=== PATIENT | male | born 1980 | race Caucasian/White ===

== ENCOUNTER → 2020-04-24 | Outpatient (CLI) | payer OTHER, SELFPAY ==
[2020-01-19 13:33] VITALS: BMI 26.5
--- NOTE | 2020-04-24 15:02 | CT_ITS ---
STUDY: CT ABDOMEN AND PELVIS WITH CONTRAST REASON FOR EXAM: Male, 39 years old. LEFT SIDE ABDOMINAL PAIN RADIATION DOSAGE (If Supplied By Facility): CTDIvol = ( 13.89 ) mGy, DLP = ( 922.56 ) mGycm TECHNIQUE: Transaxial images were obtained from the dome of the diaphragm to the symphysis pubis with oral contrast. Oral and amp; IV Readi-CAT and amp; 100mL Isovue-300 was administered. Sagittal and coronal images were reconstructed. Individualized dose optimization techniques were used for this CT. COMPARISON: None. FINDINGS: The visualized lung bases are unremarkable. The visualized portions of the heart are within normal limits. There is decreased attenuation of the liver consistent with steatosis. There is a solitary gallstone. Normal spleen. Normal pancreas. Normal bilateral adrenal glands. Normal right kidney. Normal left kidney. Normal visualized stomach. Normal small intestine. Normal colon. The appendix is visualized and appears normal. Normal abdominal aorta. Normal inferior vena cava. Normal retroperitoneum. Normal urinary bladder. There are prostatic calcifications. There is a small umbilical hernia containing fat. Small left inguinal hernia containing fat. Normal osseous structures. CT/Abdomen/Pelvis WITH Contrast IMPRESSION: Fatty infiltration of the liver. Small umbilical and left inguinal hernia containing fat. Electronically Signed: Ghassan Carter, at 9:41 EDT , Service support ,
== END | disposition home or self-care (01) ==
LOC: CT 14:56
PROVIDERS: PCP Family Medicine; Referring Provider Surgery; Visit Provider Surgery
DX: R10.9 Unspecified abdominal pain (principal)
CPT/HCPCS: 74177; Q9967

== ENCOUNTER 2020-05-11 12:10 | Day surgery (SDC) | payer OTHER, SELFPAY ==
[2020-01-19 13:33] VITALS: BMI 26.5
[2020-05-11] VITALS (9 sets, daily range): BP systolic 105–133; BP diastolic 66–93; PULSE 66–89; RESP 16–18; TEMP 36.1–36.7; O2SAT 92–100; BMI 27.1
[2020-05-11] MEDS: Lactated Ringers 1,000 ML 100 ML IV ×2 (12:48→16:02)
--- NOTE | 2020-05-11 12:51 | PCM.HP.STD ---
Problem List (1) Left inguinal hernia Status: Acute (2) Umbilical hernia Status: Acute Qualifiers: Obstruction and gangrene presence: without obstruction or gangrene Qualified Code(s): K42.9 - Umbilical hernia without obstruction or gangrene History of Present Illness Date of Admission: 05/11/20 The patient is a 40 year old M with left groin pain. Patient does not describe any other issues at this time. Patient follows up for hernia repair Past Medical History Medical History: Medical History (Last Reviewed 01/19/20 @ 13:32 by Angela Freedman) No significant past medical history Allergies No Known Allergies Allergy (Verified 05/11/20 12:32) Home Medications: Ambulatory Orders Medication Instructions Recorded NK 10/05/19 Surgical History: Surgical History (Last Reviewed 01/19/20 @ 13:32 by Angela Freedman) History of wisdom tooth extraction K08.409 Smoking Status: Never smoker Tobacco Use: Non-smoker - *Family History Maternal Family History: Family History (Last Reviewed 01/19/20 @ 13:32 by Angela Freedman) Father No problems noted. History Items: No pertinent history Review of Systems Constitutional: Denies: Anorexia, Fever Eyes: Denies: Blurred vision HEENT: Denies: Difficulty Swallowing Respiratory: Denies: Cough, Shortness of Breath Gastrointestinal: Reports: - - Left groin pain. Denies: Abdominal Pain, Nausea, Vomiting Skin: Denies: Dryness Neurological: Denies: Balance problems Psychiatric: Denies: Anxiety Hematologic/ Lymphatic: Denies: Anemia VTE Information - Inpt Only VTE Present on Admission: No VTE Mechan Device Prophylaxis: SCD's - Physical Exam Vitals/I&O's: Vital Signs Temp Pulse Resp BP Pulse Ox 97.4 F L 89 16 116/91 H 100 05/11/20 12:33 05/11/20 12:33 05/11/20 12:33 05/11/20 12:33 05/11/20 12:33 Oxygen Delivery Method Room Air Weight: 194 lb 7.163 oz Body Mass Index (BMI) 27.1 General: Alert, Oriented x3 Neck: No JVD Lungs: Normal air movement Abdomen: Soft, Non Tender, Non-Distended Current Medications Cefazolin Sodium 2 gm/ Sodium (Chloride) 110 mls @ 150 mls/hr IV X1 ONE Stop: 05/11/20 13:06 Lactated Ringer's () 1,000 mls @ 100 mls/hr IV .Q10H LEONARDO Last Admin: 05/11/20 12:48 Dose: 100 mls/hr Documented by: Assessment/Plan All Active Problems (Last Reviewed 01/19/20 @ 13:32 by Angela Freedman) Left inguinal hernia (Acute) Umbilical hernia (Acute) 40-year-old male with left inguinal hernia and umbilical hernia 1. Patient has CT scan to confirm his left inguinal hernia which he did and he also has an umbilical hernia. I discussed robotic assisted laparoscopic inguinal hernia repair with mesh with him in detail. I discussed the risks including not limited to bleeding, infection, injury to spermatic cord, injury to bowel or ureter, recurrence of hernia. Patient understands the risks and is when to proceed. I discussed contralateral hernia repair if there is a hernia present on the other opposite side. The patient would like this repaired if it is present. The patient also has an umbilical hernia and I did discuss umbilical hernia repair without mesh repair as it is very small. The patient would like the umbilical hernia repaired at the same time. Lexa Garcia MD Pager: [facility] [address] [place] [address], [address] [place] [address] Office:
[2020-05-11] MEDS: Cefazolin 2 GM in 0.9% Normal Saline 100 ML IV (13:13)
[2020-05-11] MEDS: Bupivacaine Mpf 0.5% 30 ML VIAL (14:30)
--- NOTE | 2020-05-11 15:06 | PCM.OPRPT ---
Problem List (1) Left inguinal hernia Status: Acute (2) Umbilical hernia Status: Acute Qualifiers: Obstruction and gangrene presence: without obstruction or gangrene Qualified Code(s): K42.9 - Umbilical hernia without obstruction or gangrene Report of Operation Date of Procedure: 05/11/20 Pre-Operative Diagnosis: 1. Left inguinal hernia. 2. Umbilical hernia Post-Operative Diagnosis: 1. Bilateral inguinal hernias. 2. Umbilical hernia Surgery/Procedure Performed:: 1. Robotic assisted laparoscopic bilateral inguinal hernia repair with mesh. 2. Umbilical hernia repair Description of Procedure: Patient was brought back the operating room and general anesthesia was these. The abdomen was prepped and draped in usual sterile fashion. An incision was made superior to the umbilicus in the midline and hemostat was used to grasp the fascia and elevated as a Veress needle was placed into the abdomen and drop test was performed. The abdomen was then insufflated to 15 mmHg. The Veress needle was removed and a camera port was placed into the abdomen. Next the camera was placed into the abdomen and it was inspected and there were no injuries. The inguinal regions were inspected and that he had bilateral inguinal hernias. Next an incision was made in the right lateral abdomen and the left lateral abdomen and in each incision an 8 mm robotic port was placed under direct visualization. Next the robot was docked after the patient was placed in steep Trendelenburg position. The left inguinal region was addressed first. There was an adhesion from a colonic appendage to the hernia sac. This was taken down with cautery and a Endoloop was placed around it and it was tied. Smooth cautery was used to create a flap in the left lower abdomen and the peritoneum was dissected down to the hernia sac. The hernia sac was reduced. Dissection was carried posteriorly until there was none from for the mesh. Next progrip mesh was placed into the left groin and unfolded across the hernia with good overlap. The peritoneum was then reapproximated using a running 3-0V lock suture. The peritoneum fully covered the mesh at the end of the case. Next the right groin was addressed. A flap was made in a similar fashion in the right lower quadrant. This was deepened down to the hernia sac and it was reduced as well. Once the dissection was carried posterior enough, a progrip mesh was then placed over the hernia. The progrip mesh was then unfolded and then the peritoneum was reapproximated using a running 3-0 V lock suture. This completely covered the mesh on the side. Next the robot was undocked and the air was desufflated from the abdomen. Next a curvilinear incision was marked at the umbilicus and injected with local anesthetic. The curvilinear incision was then made superior to the umbilicus and deepened to the umbilical hernia. The umbilical hernia was cleared of all adhesions and closed using interrupted 2-0 PDS sutures. It was less than 1 cm in diameter. Next the umbilical stalk was reapproximated to the fascia using a 4-0 Monocryl suture. The skin was then closed with a continuous 4-0 Monocryl suture. Next the laparoscopic ports were injected with local anesthetic and closed with interrupted 4-0 Monocryl sutures. All incisions had Steri-Strips and bandages placed over them. Patient was then awoken and taken to PACU in stable condition. Scrotum was checked at the end of the case and contain both testicles. Grafts/Implants Used: Progrip mesh bilaterally - Admit VTE Documentation VTE Mechan Device Prophylaxis: SCD's
--- NOTE | 2020-05-11 15:20 | DCINST_ITS ---
Discharge Diet: Light diet - advance as tolerated Discharge Activity: Return to Normal Activity, May Not Drive - for 2-3 days or while taking narcotic pain meds., May Shower - with the bandage in place 1-2 days after surgery. Lifting Restrictions: 20 pounds for 6 weeks. Additional Activity Instructions:: Climbing stairs is fine, walking is encouraged. Sitting in bed may be uncomfortable. Sitting up using your lateral muscles (sitting up sideways) is usually more comfortable. Do not drive, work heavy equipment of sign legal documents for 24 hours. If your hernia repair was an ingunial repair, you may have scrotal swelling, an ice pack and/or athletic support can provide more comfort. Pain medications may cause nausea, you should typically eat light foods as you take your pain medications. Pain medications may also cause constipation. If you have difficulty with this, discuss with your doctor. Call your doctor if your incision/area has: Continuous Slow Oozing, Sudden Increased Bleeding, Increased Pain/ Swelling, Increased Redness, Foul Smelling Discharge Call your doctor if you observe: Fever of 101 or Higher Suture Line Care: Avoid Pulling/Pushing, Avoid Pinching/Bending Change Dressing in (Days):: 3 - Leave steri-strips for 1 week. May protect with a guaze bandaid. Cleanse incision/area with: Keep Dressing Clean & Dry Allergies/Adverse Reactions: Allergies No Known Allergies Allergy (Verified 05/11/20 12:32) Medications to take at Discharge Oxycodone HCl/Acetaminophen [Percocet 5-325 mg Tablet] 1 - 2 tab PO Q6H PRN PRN 3 Days #15 tablet 05/11/20 The following prescriptions were given: Oxycodone HCl/Acetaminophen [Percocet 5-325 mg Tablet] 1 - 2 tab PO Q6H PRN PRN 3 Days #15 tablet PRN Reason: Pain Score 4-10/10 Transmission Status: Sent to [facility] Test Results: Test results from this visit will be discussed in further detail at your follow- up appointment, if applicable. Please Follow Up With: Lexa Garcia MD When: Please call to schedule 2 week follow up appointment. [phone]
[2020-05-11] MEDS: oxyCODONE 5 MG Tablet PO (17:28)
[2020-05-11] MEDS: Acetaminophen 325 MG Tablet PO (17:28)
== END 2020-05-11 18:25 | disposition home or self-care (01) ==
LOC: SDC 12:10 → AC 12:11
PROVIDERS: Obstetrics & Gynecology; PCP Family Medicine; Referring Provider Surgery; Visit Provider Surgery
PROC: (CPT 49585; principal; 2020-05-11 13:15)
DX: K40.20 Bilateral inguinal hernia, without obstruction or gangrene, not specified as recurrent (principal); K42.9 Umbilical hernia without obstruction or gangrene; Z20.828 Contact with and (suspected) exposure to other viral communicable diseases
CPT/HCPCS: 49585; 49650; 87635; C9803; J7120; J2405; U0003

== ENCOUNTER → 2020-09-20 15:59 | Outpatient (CLI) | payer OTHER, SELFPAY ==
[2020-05-11 12:33] VITALS: BMI 27.1
--- NOTE | 2020-09-20 16:10 | CT_ITS ---
STUDY: CT ABDOMEN AND PELVIS WITHOUT CONTRAST REASON FOR EXAM: Male, 40 years old. Abdominal pain RADIATION DOSAGE (If Supplied By Facility): CTDIvol = ( 10.43 ) mGy, DLP = ( 568.89 ) mGycm TECHNIQUE: Transaxial images were obtained from the dome of the diaphragm to the symphysis pubis without oral contrast, and without intravenous contrast. Sagittal and coronal images were reconstructed. Individualized dose optimization techniques were used for this CT. COMPARISON: April 24, 2020 FINDINGS: There is right lower lung granuloma. The visualized portions of the heart are within normal limits. There is decreased attenuation of the liver consistent with steatosis. There is a solitary gallstone. Normal spleen. Normal pancreas. Normal bilateral adrenal glands. Normal right kidney. Normal left kidney. Normal visualized stomach. Normal small intestine. Normal colon. The appendix is visualized and appears normal. Normal abdominal aorta. Normal inferior vena cava. Normal retroperitoneum. Normal urinary bladder. There are prostatic calcifications. There is no free fluid in the abdomen or pelvis. Normal abdominal wall. Normal osseous structures. CT/Abdomen/Pelvis without Cont IMPRESSION: Fatty infiltration of the liver. Gallstone. No biliary dilatation. Electronically Signed: Héctor Bernard MD at 16:25 EST , Service support ,
== END ==
PROVIDERS: PCP Family Medicine; Referring Provider Surgery; Visit Provider Surgery
DX: R10.9 Unspecified abdominal pain (principal)
CPT/HCPCS: 74176

== ENCOUNTER 2022-10-05 20:49 | Emergency (ER) | payer BC, SELFPAY ==
[2022-10-05 20:51] VITALS: BP 150/94; PULSE 94; RESP 16; TEMP 36.2; O2SAT 99; BMI 28.4
--- NOTE | 2022-10-05 21:17 | EKG12_ITS ---
Test Reason : CP Blood Pressure : / mmHG Vent. Rate : 089 BPM Atrial Rate : 089 BPM P-R Int : 146 ms QRS Dur : 082 ms QT Int : 336 ms P-R-T Axes : 033 -29 -07 degrees QTc Int : 408 ms Normal sinus rhythm Nonspecific ST and T wave abnormality Abnormal ECG Confirmed by CHRISTINE HODGES, MARK ([id number]), assignment desk editor DEBO MONCADA ([id number]) on 10/06/2022 1:57:37 PM Referred By: Confirmed By:MARK KING MD
--- NOTE | 2022-10-05 21:18 | ED.VIS.CHEST ---
HPI History of Present Illness Chief Complaint: Other, Pain/Inj Detail of Chief Complaint: chest pain Informant: patient Onset/Context/Timing Onset: Days (4) Activity at onset: sudden and onset Timing: Continuous Quality: Positive for Pain (discomfort) Location: Left Chest Current Severity: Mild Maximum Severity: Mild Worsened By: Nothing Relieved By: Nothing Narrative Narrative: Patient has chronic pain associated with some ribs on the left side, 4 days ago he had rib/intercostal injections in his left back. He states suddenly upon leaving [facility], he started having this discomfort in his left anterolateral chest, he states he constantly feels a gurgling sound coming from there. He is not dyspneic. He denies any other symptoms but has not done away. Weeks ago he had injections in the same rib area anterior laterally, but he only had back injections 4 days ago. No history of heart problems or valve issues or any open heart surgery. [facility] Medical History (Updated 10/05/22 @ 22:[address] Héctor Crisostomo MD) Costochondritis Left inguinal hernia Umbilical hernia Home Medications NK 10/05/22 [History Last Taken Unknown] Allergy/AdvReac Type Severity Reaction Status Date / Time No Known Allergies Allergy Verified 10/05/22 20:53 Family History Father No problems noted. Surgical History (Updated 05/11/20 @ 12:[address] Lexa Garcia MD) History of wisdom tooth extraction Social History Smoking Status: Never smoker ROS ROS ED Constitutional Constitutional ED: Denies chills or fever(s) Eyes Eyes: Denies change in vision or diplopia ENT ENT ED: Denies rhinorrhea or sore throat Cardiovascular Cardiovascular: Reports as per HPI and chest pain; Denies palpitations Respiratory/Chest Respiratory/Chest: Denies cough or dyspnea Gastrointestinal Gastrointestinal: Denies abdominal pain, diarrhea, nausea or vomiting Genitourinary Genitourinary ED: Denies dysuria or hematuria Musculoskeletal Musculoskeletal: Denies back pain or neck pain Integumentary Denies abscess or rash Neurologic Neurologic: Denies headache(s), paresthesias or weakness Psychiatric Psychiatric: Denies anxiety or suicidal thoughts EXAM Physical Exam Const Vital Signs: 10/05/22 20:51 Temperature 97.2 F L Temperature Source Temporal Pulse Rate 94 Respiratory Rate 16 Blood Pressure 150/94 H Blood Pressure Mean 112 Pulse Ox 99 Oxygen Delivery Method Room Air Positive well nourished and well developed General Appearance ED: well developed and NAD HEENT Reports moist mucous membranes normocephalic and atraumatic Eyes PERRL and EOMs intact bilaterally Neck full ROM and supple Chest Wall inspection of chest normal and palpation of chest normal Chest Narrative: No subcutaneous emphysema in the chest wall. Normal inspection. Mildly tender at one of the intercostal spaces anterolateral approximately #5 without crepitance. Resp normal respiratory effort and clear to auscultation bilaterally Resp Narrative: Equal breath sounds present bilaterally. No changes in abnormal heart sounds with inspiration or expiration. Cardio regular rate and regular rhythm Cardio Narrative: Audible click with suspected diastolic murmur. It went away for a brief period of time and then came back. Peripheral Pulses: pulses 2+ throughout GI non-tender and non-distended Auscultation: normoactive bowel sounds Palpation: soft Back/Spine no CVA tenderness General Back: other FROM Extremity normal to inspection General Extremety ED: Negative for edema, pulses abnormal or tenderness General Extremity: Negative for edema or pulses abnormal Neuro oriented x3, CN's II-XII intact bilaterally, no sensory deficits noted and gait normal Sensorium / Orientation: awake and alert Motor Exam: strength 5/5 throughout Skin no rashes or lesions noted and no wounds MDM MDM MDM Narrative Medical decision making narrative: EKG shows some nonspecific repolarization abnormalities without ST depressions or elevations, there is no electrical alternans. I did a bedside ultrasound of his heart, given the probes that we have available which does not include a thumbprint probe, the views were very limited, but I was able to determine that there is not a large pericardial effusion. 2 view chest x-ray interpreted by myself shows no pneumothorax or other acute abnormality. Radiology in agreement. Very unlikely that this patient had a needle that went further than the ribs into the heart without a pneumothorax. It is unknown how his procedure could be related to the current clinical exam abnormality. He is stable and not in acute failure or any other emergent condition right now. It does appear to be an audible valvular abnormality that I think would be reasonable to have an outpatient urgent echocardiogram which I discussed with him. I discussed that with Dr. Roque who was covering for his PCP Dr. Stevie holbrook, he was in agreement and asked that we do some blood work and maybe some blood cultures that way we rule out endocarditis, that was done, the blood work is normal, patient was reassured and advised to follow-up with his doctor tomorrow and Thursday. Lab Data Attestation: I reviewed the patient's lab results. Labs: Laboratory Results - last 24 hr 10/05/22 10/05/22 22:10 22:10 WBC 9.8 RBC 5.47 Hgb 16.4 Hct 47.3 MCV 86.5 MCH 30.0 MCHC 34.7 RDW Std Deviation 38.5 RDW Coeff of Moira 12.1 Plt Count 281 MPV 9.3 Immature Gran % (Auto) 0.600 Neut % (Auto) 64.7 Lymph % (Auto) 23.0 [place] % (Auto) 10.7 H Eos % (Auto) 0.3 Baso % (Auto) 0.7 Absolute Neuts (auto) 6.4 Absolute Lymphs (auto) 2.26 Nucleated RBC % 0 Sodium 140 Potassium 4.0 Chloride 106 Carbon Dioxide 27.0 Anion Gap 7 BUN 19 H Creatinine 0.90 Estim Creat Clear Calc 111.56 Est GFR (MDRD) Af Amer 117 Est GFR (MDRD) Non-Af 97 BUN/Creatinine Ratio 21.0 H Glucose 117 H Calcium 9.0 Troponin I High Sens 3 Radiography Chest X-Ray - ED: 2 View, Read by ED Physician, Normal, Heart, Lungs, Mediastinum, No Acute Disease and No Infiltrates Diagnostic Testing: Clinical Impression(s) from Imaging Studies Chest X-Ray 10/05/22 21:30 IMPRESSION: No radiographic evidence of acute cardiopulmonary disease. Electronically Signed: Bernice Childress MD at 21:51 EDT Reading Location ID and State: [id number] / Tel , Service support , Rhythm Strip Rhythm Strip: Sinus Rhythm Rate: 90 Ectopy: None EKG Initial EKG: Attestation: I personally reviewed and interpreted this EKG as follows: Interpretation: Sinus Rhythm, No Acute Injury Pattern and Non-Specific ST Changes (Anteroseptal and inferior with T wave inversions no ST segment deviations) Comments: No electrical alternans Prior: No Prior Discharge Plan Triage Chief Complaint: Other, Pain/Inj Other Complaint: Chest Pain ED Provider: Héctor Crisostomo Dx/Rx/DC Orders Clinical Impression: Intercostal pain, Cardiac murmur Instructions: Diagnosing Heart Valve Problems Prescriptions: No Action NK Primary Care Provider: Cuba Hubbard Referrals: Cuba Hubbard MD [Primary Care Provider] - As soon as possible (call tomorrow) Disposition Disposition: Home, Self Care
--- NOTE | 2022-10-05 21:30 | RAD_ITS ---
INDICATION: chest pain EXAMINATION/TECHNIQUE: X-RAY - XR Chest 2 Views COMPARISON: None. FINDINGS: LINES/DEVICES: None. LUNGS: No consolidation, edema or effusion. No pneumothorax. MEDIASTINUM AND CARDIOVASCULAR STRUCTURES: Cardiac silhouette not enlarged. Central airways and mediastinal contour are unremarkable. BONES AND SOFT TISSUES: Unremarkable. RAD/Chest PA and Lateral IMPRESSION: No radiographic evidence of acute cardiopulmonary disease. Electronically Signed: Bernice Childress MD at 21:51 EDT [place] Location ID and State: [id number] / Tel , Service support ,
[2022-10-05 22:21] LABS: Absolute Lymphocyte Count 2.26 X10^3/uL (0.83-4.51); Absolute Neutrophil Count 6.4 X10^3/uL (2.0-7.7); Basophil# 0.07 X10^3/uL; Basophil% 0.7 % (0-1); Eosinophil# 0.03 X10^3/uL; Eosinophils% 0.3 % (0-5); Hematocrit 47.3 % (40-54); Hemoglobin 16.4 g/dL (13.0-16.5); Lymphocyte # 2.26 X10^3/ul (0.83-4.51); Mean Corp Hgb Conc 34.7 g/dL (32-36); Mean Corpuscular Volume 86.5 fL (80-94); Mean Platelet Vol. 9.3 fl (6.2-12.0); Monocyte# 1.05 X10^3/uL; Monocyte% 10.7 % (0-10); NRBC Flagged by Analyzer 0 % (0-5); Neutrophil # 6.37 X10^3/uL (2.7-7.7); Neutrophil % 64.7 % (47-70); Platelet Count 281 K/mm3 (150-450); RBC Distribution Width CV 12.1 % (11.6-14.6); RBC Distribution Width SD 38.5 fl (35.1-43.9); Red Blood Count 5.47 M/mm3 (4.6-6.2); White Blood Count 9.8 K/mm3 (4.4-11.0)
[2022-10-05 22:41] LABS: Anion Gap 7 (5-15); BUN 19 mg/dL (7-18); Chloride 106 mmol/L (98-107); EST Glomerular Filtration Rate 97 mL/min (>60); Est Glom Filt Rate - Afr Amer 117 mL/min (>60); Estimated Creatinine Clearance 111.56 ml/min; Glucose 117 mg/dL (74-106); Sodium Level 140 mmol/L (136-145); Troponin-I HS 3 pg/mL (3.0-78.0)
[2022-10-05 23:00] VITALS: BP 129/92; RESP 14
== END 2022-10-05 23:02 | disposition home or self-care (01) ==
PROVIDERS: Emergency Provider Emergency Medicine; PCP Family Medicine; Visit Provider Emergency Medicine
DX: R07.82 Intercostal pain (principal); R01.1 Cardiac murmur, unspecified; G89.29 Other chronic pain
CPT/HCPCS: 71046; 80048; 84484; 85025; 87040; 93005; 99284; A4216

== ENCOUNTER → 2022-10-17 | Outpatient (CLI) | payer BC, SELFPAY ==
--- NOTE | 2022-10-17 13:38 | MRI_ITS ---
STUDY: MRI THORACIC SPINE WITHOUT CONTRAST REASON FOR EXAM: Male, 42 years old. Thoracic radiculopathy. TECHNIQUE: Standardized fat and water weighted pulse sequences were obtained in the sagittal and axial planes. COMPARISON: None. FINDINGS: Normal kyphosis of the thoracic spine. There is no substantial scoliosis. T1-2, T2-3, T3-4, T4-5, T5-6, T6-7, T7-8, T8-9, T9-10, T10-11, T11-12: Normal endplates. Normal disc hydration, heights and morphology of the corresponding intervertebral discs. Normal central canal and intervertebral neural foramina at the corresponding levels. Normal visualized thoracic cord. Normal conus medullaris that terminates at the T12-L1 disc space level. The soft tissue structures are unremarkable. MRI/Spine Thoracic (Routine) IMPRESSION: Normal unenhanced MRI examination of the thoracic spine. Electronically Signed: Yann Acharya MD at 15:37 EDT ,
== END | disposition home or self-care (01) ==
PROVIDERS: PCP Family Medicine; Referring Provider Anesthesiology Pain Medicine; Visit Provider Anesthesiology Pain Medicine
DX: M54.14 Radiculopathy, thoracic region (principal)
CPT/HCPCS: 72146

== ENCOUNTER → 2022-10-24 | Outpatient (CLI) | payer BC, SELFPAY ==
--- NOTE | 2022-10-24 14:50 | ECHOD_ITS ---
Reason For Study: abn heart sounds Procedure This was a 2D Doppler, Color Flow transthoracic echocardiogram. Exam performed in department. Left Ventricle Normal LV size. The estimated ejection fraction is 55 %. No evidence for diastolic dysfunction. No regional wall motion abnormalities noted. Right Ventricle Normal RV size. Normal systolic function. Atria Normal left atrium. Normal right atrium. No doppler evidence for ASD. Mitral Valve There is no mitral valve stenosis. No mitral valve insufficiency. Tricuspid Valve There is no tricuspid stenosis. Unable to estimate RV systolic pressure due to inadequate jet, pulmonary artery pressure probably normal. Aortic Valve Trisinus/trileaflet aortic valve. There is no aortic stenosis. No aortic valve insufficiency. Pulmonic Valve There is no pulmonic valvular stenosis. No pulmonic valve insufficiency. Great Vessels Normal aortic root. Pericardium/Pleural No pericardial effusion. MMode/2D Measurements & Calculations LVIDd: 4.5 cm IVSd: 1.2 cm LVOT diam: 2.1 cm LVIDs: 3.5 cm LVPWd: 1.4 cm LVOT area: 3.6 cm2 FS: 22.7 % Ao root diam: 3.6 cm LAV(MOD-bp): 34.9 ml LVAd ap4: 22.5 cm2 LAV(MOD-bp) Indexed: 16.9 ml/m2 LVLd ap4: 6.7 cm LAV(MOD-sp2): 31.5 ml EDV(MOD-sp4): 61.7 ml LAV(MOD-sp4): 38.6 ml EDV(sp4-el): 63.7 ml LVAs ap4: 12.8 cm2 LVLs ap4: 6.5 cm ESV(MOD-sp4): 22.7 ml ESV(sp4-el): 21.2 ml EF(MOD-sp4): 63.3 % EF(sp4-el): 66.7 % SV(MOD-sp4): 39.0 ml SV(sp4-el): 42.5 ml LA A4 area: 15.3 cm2 RA A4 area: 9.2 cm2 Time Measurements MV dec time: 0.22 sec Doppler Measurements & Calculations MV E max vahid: 48.4 cm/sec Lat Peak E' Vahid: 8.5 cm/sec Med Peak E' Vahid: 6.0 cm/sec MV A max vahid: 43.7 cm/sec E/E' lat: 5.7 E/E' med: 8.0 MV E/A: 1.1 MV V2 max: 74.2 cm/sec Ao V2 max: 79.4 cm/sec MV max P.2 mmHg MV dec slope: 231.4 cm/sec2 Ao max P.5 mmHg MV V2 mean: 54.0 cm/sec Ao V2 mean: 58.4 cm/sec MV mean P.2 mmHg Ao mean P.5 mmHg MV V2 VTI: 25.2 cm Ao V2 VTI: 16.2 cm AV (velocity ratio): 0.89 MVA(VTI): 2.1 cm2 NEREIDA(I,D): 3.2 cm2 NEREIDA(V,D): 3.1 cm2 LV V1 max: 67.2 cm/sec SV(LVOT): 52.0 ml PA V2 max: 99.7 cm/sec LV V1 max P.8 mmHg PA V2 mean: 65.8 cm/sec LV V1 mean P.0 mmHg LV V1 mean: 46.7 cm/sec LV V1 VTI: 14.4 cm ECHO/Echo Complete Interpretation Summary The estimated ejection fraction is 55 %. No evidence for diastolic dysfunction. Ordering Physician: Belinda Pizarro Referring Physician: Belinda Pizarro Performed By: Martina Sepulveda RCS
== END | disposition home or self-care (01) ==
LOC: CVS 14:05
PROVIDERS: PCP Family Medicine; Referring Provider Nurse Practitioner Family; Visit Provider Nurse Practitioner Family
DX: R01.2 Other cardiac sounds (principal)
CPT/HCPCS: 93306

== ENCOUNTER → 2023-06-23 | Outpatient (CLI) | payer BC, SELFPAY ==
[2023-06-23 17:39] LABS: Absolute Lymphocyte Count 2.38 X10^3/uL (0.83-4.51); Absolute Neutrophil Count 3.8 X10^3/uL (2.0-7.7); Basophil# 0.08 X10^3/uL; Basophil% 1.1 % (0-1); Eosinophils% 1.4 % (0-5); Hematocrit 48.2 % (40-54); Hemoglobin 16.5 g/dL (13.0-16.5); Lymphocyte # 2.38 X10^3/ul (0.83-4.51); Lymphocyte % 33.5 % (19-41); Mean Corp Hgb Conc 34.2 g/dL (32-36); Mean Corpuscular Volume 87.6 fL (80-94); Mean Platelet Vol. 9.6 fl (6.2-12.0); Monocyte# 0.73 X10^3/uL; Monocyte% 10.3 % (0-10); NRBC Flagged by Analyzer 0 % (0-5); Neutrophil % 53.4 % (47-70); Platelet Count 270 K/mm3 (150-450); RBC Distribution Width CV 12.4 % (11.6-14.6); RBC Distribution Width SD 39.7 fl (35.1-43.9); White Blood Count 7.1 K/mm3 (4.4-11.0)
[2023-06-23 17:57] LABS: Erythrocyte Sedimentation Rate < 1 mm/hr (0-20)
[2023-06-23 18:04] LABS: Vitamin B12 430 pg/mL (211-911)
[2023-06-23 18:48] LABS: ALB/GLOB Ratio 1.3 RATIO (0.9-2.4); AST(SGOT) 28 U/L (15-37); Alanine Aminotransfer ALT/SGPT 57 U/L (16-61); Alkaline Phosphatase 77 U/L (45-117); Anion Gap 7 (5-15); BUN 12 mg/dL (7-18); CRP < 2.90 mg/L (0.0-3.0); Calcium,Total 8.7 mg/dL (8.5-10.1); Chloride 106 mmol/L (98-107); Creatinine, Serum 0.86 mg/dL (0.70-1.30); EST Glomerular Filtration Rate 102 mL/min (>60); Est Glom Filt Rate - Afr Amer 124 mL/min (>60); Ferritin 501 ng/mL (26-388); Globulin 3.1 g/dL (2.2-4.2); Glucose 90 mg/dL (74-106); Iron 82 ug/dL (65-175); Magnesium 1.9 mg/dL (1.6-2.6); Potassium 3.7 mmol/L (3.5-5.1); Protein, Total 7.1 g/dL (6.4-8.2); Rheumatoid Factor < 10.0 IU/mL (<15); Sodium Level 140 mmol/L (136-145); Thyroid Stim Hormone (TSH) 2.08 uIU/mL (0.358-3.74)
[2023-06-25 14:09] LABS: ANTINUCLEAR ANTIBODIES DIRECT Negative (Negative)
== END | disposition home or self-care (01) ==
LOC: MTLAB 14:55
PROVIDERS: PCP Family Medicine; Referring Provider Family Medicine; Visit Provider Family Medicine
DX: R20.2 Paresthesia of skin (principal)
CPT/HCPCS: 36415; 80053; 82306; 82607; 82728; 83540; 83735; 84403; 84443; 84466; 85025; 85652; 86038; 86140; 86431

== ENCOUNTER → 2023-08-14 | Outpatient (CLI) | payer BC, SELFPAY ==
--- OUTSIDE RECORDS SUMMARY | 2023-08-14 15:25 | XMS RPT_ITS | CCD ---
Author Name Unknown Address [address] [place] [address] Organization [facility] Care Team Providers Care Riveter Portable Machine Name Role Phone NYADANIEL Unavailable Unavailable JOSE L SAINZ Unavailable Unavailable Results Test Name Value Interpretation Reference Range Facil ity Encounters Encounter Date Encounter Type Care Provider Facility Start: 04-15-2017 End: 04-15-2017 Emergency department patient visit DANIEL FAY Facility:[id number] Clinical Note 10-30-2021 Note Date & Type Note Facility 10-30-2021 Note Patient Outreach (NE TNAV) MICHAEL NUNEZ ([id number]) 1980 M Date Time Provider Department 10/30/21 NO PCP NETNAV During your visit today, we recorded the following information about you: Haseeb Stoddard 10/30/2021 11:10 AM Signed POPULATION HEALTH NAVIGATION OUTREACH Action/FYI AI consult order dated [id number] Pt identified by name and : NO Outreach Outcome/Action Unable to reach patient: Phone number not valid / voicemail full [employer] message sent Reason for Outreach Care Gap or Scheduling/Wellness visits Payer: Payor: ARIELLE / Plan: BLUE CARD PPO OOS / Product Type: PPO / Care Gap Reviewed:: AI Reminder: Reminder note to check Health Maintenance for items below Health Maintenance items due: COVID-19 VACCINE(1) Never done DEPRESSION SCREENING Never done HEPATITIS C SCREENING Never done HIV SCREENING Never done DTAP,TDAP,TD(1 - Tdap) Never done LIPID SCREEN Never done Message Sent to Practice: No Navigation Signature: Haseeb Stoddard October 30, 2021 11:10 AM Allergies As of Date: 10/30/2021 (No Known Allergies) Date Reviewed: 10/14/2021 Reviewed by: Monica Crenshaw - Fully Assessed Prescriptions as of 10/30/2021 - gabapentin (NEURONTIN) 300 mg capsule Take 1 capsule by mouth three times daily for 90 days. Problem List As Of Date: 10/30/2021 (None) Encounter Status:Closed by HASEEB MURPHY on 10/30/21 [facility] Progress note 10-30-2021 Note Date & Type Note Facility 10-30-2021 Note HNO ID: [id number] Author: Haseeb Stoddard Service: ? Author Type: ? Type: Progress Notes Filed: 10/30/2021 11:10 AM Note Text: POPULATION HEALTH NAVIGATION OUTREACH Action/FYI AI consult order dated [id number] Pt identified by name and : NO Outreach Outcome/Action Unable to reach patient: Phone number not valid / voicemail full [employer] message sent Reason for Outreach Care Gap or Scheduling/Wellness visits Payer: Payor: ANTHEM / Plan: BLUE CARD PPO OOS / Product Type: PPO / Care Gap Reviewed:: AI Reminder: Reminder note to check Health Maintenance for items below Health Maintenance items due: COVID-19 VACCINE(1) Never done DEPRESSION SCREENING Never done HEPATITIS C SCREENING Never done HIV SCREENING Never done DTAP,TDAP,TD(1 - Tdap) Never done LIPID SCREEN Never done Message Sent to Practice: No Navigation Signature: Haseeb Stoddard October 30, 2021 11:10 AM [facility] Progress note 10-14-2021 Note Date & Type Note Facility 10-14-2021 Note HNO ID: [id number] Author: Jose L Sainz DO Service: ? Author Type: Physician Type: Progress Notes Filed: 10/14/2021 11:30 AM Note Text: Here to fu on ct scan and his continued back and side pain HISTORY REVIEWED No past medical history on file. No past surgical history on file. No family history on file. Social History Social History Narrative Not on file Allergies: ALLERGIES No Known Allergies Medications: gabapentin (NEURONTIN) 300 mg capsule Take 1 capsule by mouth three times daily for 90 days. predniSONE (DELTASONE) 50 mg Take 1 tablet by mouth once daily. Problem List: There is no problem list on file for this patient. Review of Systems Constitutional: Negative. Respiratory: Negative. Cardiovascular: Negative. Musculoskeletal: Positive for arthralgias. Physical Exam Cardiovascular: Rate and Rhythm: Normal rate and regular rhythm. Pulses: Normal pulses. Heart sounds: Normal heart sounds. Neurological: Mental Status: He is alert. BP 113/76 Pulse 97 Temp 36.6 ?C (97.8 ?F) (Temporal) Ht 180.3 cm (5' 11 ) Wt 91.1 kg (200 lb 12.8 oz) BMI 28.01 kg/m? ASSESSMENT/PLAN: 1. Calculus of gallbladder with chronic cholecystitis without obstruction - ICD9: 574.10, ICD10: K80.10 (primary diagnosis) - CONSULT TO GENERAL SURGERY 2. Osteoarthritis of spine with radiculopathy, thoracic region - ICD9: 721.2, ICD10: M47.24 - CONSULT TO GENERAL SURGERY - CONSULT TO PAIN MGT Jose L Sainz DO [facility] Progress note 10-07-2021 Note Date & Type Note Facility 10-07-2021 Note HNO ID: [id number] Author: RT Nicola(R) Service: ? Author Type: Elementary School Principal Type: Progress Notes Filed: 10/07/2021 2:54 PM Note Text: Radiology Service Progress Note PATIENT NAME: Michael Nunez DATE OF SERVICE: October 07, 2021 TIME: 2:54 PM PATIENT IDENTITY VERIFICATION COMPLETED USING TWO (2) IDENTIFIERS: Name and Date of confirmed by patient verbally. FALL SCREENING: Has the patient had 2 falls in the last year or 1 fall with injury or currently using an Ambulatory Assistive Device (Walker, Cane, Wheelchair, Crutches, etc.)? No PATIENT GENDER DATA: Male PATIENT RELEVANT IMPLANT DATA REVIEWED: Not Applicable RADIOLOGY DEPARTMENT: CT; Exam(s) Completed: Chest and Spine PERIPHERAL IV DATA: Not applicable SIGNED BY: RT Fermin(R) October 07, 2021 2:54 PM [facility] Progress note 09-10-2021 Note Date & Type Note Facility 09-10-2021 Note HNO ID: [id number] Author: Akanksha Smith PT Service: ? Author Type: Physical Therapist Type: Progress Notes Filed: 10/28/2021 4:48 PM Note Text: 10/28/2021 [facility] REHABILITATION AND SPORTS THERAPY PHYSICAL THERAPY DISCONTINUANCE OF CARE Plan of Care Period: Start of Care Date: 09/10/21 Last Visit Date: 09/10/2021 Therapy Program: Patient did not return for follow up care as planned. Please refer to last visit note for interventions provided for this episode of care. Assessment: Unable to formally assess goal achievement. Reason for Discontinuation of Care: Patient has not returned to therapy or scheduled additional follow-up appointments. Akanksha Smith PT Episode Visit Count: 1 Therapist That Will Oversee The Plan Of Care: Akanksha Smith Start of Care Date: 09/10/21 Onset Date: 08/27/19 (approx date) Patient Identified by Name and Date of : Yes REHABILITATION AND SPORTS THERAPY PHYSICAL THERAPY EVALUATION PLAN OF CARE: Assessment: Michael Nunez presents with chief complaint of left rib pain that interferes with sitting;bending;lifting;physical activities;recreational activities;working;jumping;reaching overhead;throwing;carrying . He presents with impairments in ADL's, joint mobility, range of motion and strength . PROMIS? (Patient-Reported Outcomes Measurement Information System) scores were reviewed and physical function domain and social roles domain identified as a rehabilitation concern. Prognosis for therapy is Good due to: current objective clinical presentation;good overall health status . He will benefit from skilled therapy services to meet the goals established for this plan of care as noted below. Goals for Episode of Care: created on 09/10/21 through 11/05/21 [place] in home exercise program. Patient will decrease pain to 0/10 at rest to allow patient to improve tolerance for work activities. Patient will increase active ROM of thoracic spine to WNL to allow pt to to improve postural alignment. Patient will demonstrate increase in B shoulder ext, lower trap, and mid trap strength to 5/5 during manual muscle testing in order to improve function for leisure / recreation skills. Perform sitting and work activities with decreased report of symptoms/pain in 6 weeks. Improve postural awareness. Patient Goals: get rid of pain Planned Interventions, Frequency, and Duration: Current Frequency: 2x/week Duration: 6 weeks Total Number of Visits Planned: 12 Planned Treatment Interventions: Therapeutic exercise (65297);Neuromuscular re-education (12226);Manual therapy (70398);Therapeutic activities (52966);Patient/Family/Caregiver Education;Body Mechanics Training PLAN FOR NEXT VISIT: assess response to HEP, progress core and scapular muscle strength, thoracic mobility Patient demonstrates good understanding of plan of care and treatment. The above goals and plan of care were discussed and agreed upon by patient/family. SUBJECTIVE: Michael Nunez is a 41 year old male seen today for L rib pain. Hernia surgery 2 years ago. After 6 weeks off for that started getting pain in L rib right at incision. Saw mechanical engineering specialist - spine is fine - thinks costochondritis. Pain management - cortisone shots - didn't help. Saw family doctor - CT scan normal, recommended chiropractor - Didn't help. Saw new doctor - recommended steroid and PT. While doing activity doesn't hurt too much. At end of the day hurts really bad. Sitting is the worst. Cant sit at a computer - has to lay down. 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 Falls Interview: No positive findings with falls interview Red Flags Vertebral Fracture Clinical Reasoning: No identified risk factors Abdominal Aortic Aneurysm Clinical Reasoning: No identified risk factors. Cancer Clinical Reasoning: No identified risk factors. Infection Clinical Reasoning: No identified risk factors. Cauda Equina Syndrome Clinical Reasoning: No identified risk factors. Red Flags - Cervical Cancer Clinical Reasoning: No identified risk factors. Infection Clinical Reasoning: No identified risk factors. Pain: Pain Pain Level: 4 Pain Location: Thoracic Spin (more content not included)... [facility] Progress note 09-03-2021 Note Date & Type Note Facility 09-03-2021 Note HNO ID: [id number] Author: Jose L Sainz DO Service: ? Author Type: Physician Type: Progress Notes Filed: 09/03/2021 3:29 PM Note Text: Dealing with rib pain for many months since his hernia sx. Shots in the ribs and nsaid and chiropractic not helpful HISTORY REVIEWED No past medical history on file. No past surgical history on file. No family history on file. Social History Social History Narrative Not on file Allergies: ALLERGIES No Known Allergies Medications: No prescriptions on file. Problem List: There is no problem list on file for this patient. Review of Systems Constitutional: Negative. Respiratory: Negative. Cardiovascular: Positive for chest pain. Gastrointestinal: Negative. Musculoskeletal: Positive for myalgias. Physical Exam Cardiovascular: Rate and Rhythm: Normal rate and regular rhythm. Pulses: Normal pulses. Heart sounds: Normal heart sounds. Pulmonary: Effort: Pulmonary effort is normal. Breath sounds: Normal breath sounds. Musculoskeletal: General: Swelling: tender left lat rib t6 ant lat rib. Neurological: Mental Status: He is alert. BP 102/72 (BP Site: Left Arm, BP Position: Sitting, BP Cuff Size: Large Adult) Pulse 98 Temp 36.8 ?C (98.3 ?F) (Left Tympanic) Ht 180.3 cm (5' 11 ) Wt 92.1 kg (203 lb 1.6 oz) SpO2 98% BMI 28.33 kg/m? ASSESSMENT/PLAN:ASSESSMENT/PLAN: 1. Costochondritis - ICD9: 733.6, ICD10: M94.0 - CONSULT TO PHYSICAL THERAPY - XR THORACIC LIMITED 2V AP/LAT - XR RIBS/CHEST 3V AP RIB/OBLS/CXR LEFT Jose L Sainz DO 1. Costochondritis - ICD9: 733.6, ICD10: M94.0 - CONSULT TO PHYSICAL THERAPY - XR THORACIC LIMITED 2V AP/LAT - XR RIBS/CHEST 3V AP RIB/OBLS/CXR LEFT Jose L Sainz DO [facility] Progress note 05-01-2021 Note Date & Type Note Facility 05-01-2021 Note HNO ID: [id number] Author: Geeta Estrada PA-C Service: ? Author Type: Physician Paper Colorer Type: Progress Notes Filed: 05/01/2021 2:50 PM Note Text: This note was created using [employer]. Subjective Michael Nunez is a 40 year old male. HPI Patient presents with a injury to his left lower leg 6 days ago. He was hit with a baseball and has had bruising and swelling. He was concerned for a blood clot. He has been able to walk on it. No chest pain or shortness of breath. He denies history of blood clots in the past. Review of Systems Constitutional: Negative. HENT: Negative. Respiratory: Negative. Cardiovascular: Negative. Gastrointestinal: Negative. Musculoskeletal: Left lower leg injury All other systems reviewed and are negative. History reviewed. No pertinent past medical history. Current Outpatient Medications Medication Sig Dispense Refill - meloxicam (MOBIC) 7.5 mg tablet TAKE 1 ORAL EVERY DAY FOR 28 DAYS No current facility-administered medications for this visit. No past surgical history on file. No family history on file. Social History Tobacco Use - Smoking status: Never Smoker - Smokeless tobacco: Never Used Substance Use Topics - Alcohol use: Not on file - Drug use: Not on file Objective Temp 36.3 ?C (97.3 ?F) (Tympanic) Resp 18 Wt 87.6 kg (193 lb 3.2 oz) SpO2 98% Physical Exam Vitals reviewed. Constitutional: Appearance: Normal appearance. HENT: Head: Normocephalic and atraumatic. Musculoskeletal: Legs: Comments: Patient has a hematoma to the medial proximal lower leg on palpation. No tenderness in the posterior calf. He does have dependent bruising to the anterior lower leg as well. Negative Homans' sign. Skin: General: Skin is warm and dry. Neurological: Mental Status: He is alert. Assessment and Plan ASSESSMENT/PLAN: 1. Lower leg injury, left, initial encounter - ICD9: 959.7, ICD10: S89.92XA (primary diagnosis) X-rays are negative on my read. Pending radiology read. Patient concerned for blood clot, I feel this is likely more of a superficial hematoma however I did order an ultrasound to rule out DVT. Patient will have that done today. No signs of PE on exam. Will call on results. - US LEG VEIN DVT UNL VAS LAB - XR TIBIA FIBULA 2V AP/LAT LT 2. Localized swelling of left lower leg - ICD9: 782.2, ICD10: R22.42 - US LEG VEIN DVT UNL VAS LAB - XR TIBIA FIBULA 2V AP/LAT LT Geeta Estrada PA-C [facility] Progress note 05-01-2021 Note Date & Type Note Facility 05-01-2021 Note HNO ID: [id number] Author: Griselda Harris RT(R) Service: Radiology Author Type: Technologist Type: Progress Notes Filed: 05/01/2021 2:45 PM Note Text: Radiology Service Progress Note PATIENT NAME: Michael Nunez DATE OF SERVICE: May 01, 2021 TIME: 2:35 PM PATIENT IDENTITY VERIFICATION COMPLETED USING TWO (2) IDENTIFIERS: Name and Date of confirmed by patient verbally. FALL SCREENING: Has the patient had 2 falls in the last year or 1 fall with injury or currently using an Ambulatory Assistive Device (Walker, Cane, Wheelchair, Crutches, etc.)? No PATIENT GENDER DATA: Male PATIENT RELEVANT IMPLANT DATA REVIEWED: Yes RADIOLOGY DEPARTMENT: General X-ray: Exam(s) Completed: Lower Extremity X-Ray(s): Tibia Fibula, Left PERIPHERAL IV DATA: Not applicable SIGNED BY: Griselda Harris RT(R) May 01, 2021 2:35 PM [facility] Summary Purpose Family History No Family History Records FoundNo Family History Records Found Advance Directives No Advanced Directives Records FoundNo Advanced Directives Records Found Additional Source Comments (unrecognized sect ion and content) No Status Records FoundNo Status Records Found INFORMATION SOURCE (unrecogn ized section and content) DATE CREATED AUTHOR AUTHOR'S ORGANIZ ATION 10/30/2021 [facility] FOR RECORDS PERTAINING TO PATIENTS WHO ARE OR HAVE BEEN ENROLLED IN A CHEMICAL DEPENDENCY/SUBSTANCEABUSE PROGRAM, SOME INFORMATION MAY BE OMITTED. This clinical summary was aggregated from multiple sources. Caution should be exercised in using it in the provision of clinical care. This summary normalizes information from multiple sources, and as a consequence, information in this document may materially change the coding, format and clinical context of patient data. In addition, data may be omitted in some cases. CLINICAL DECISIONS SHOULD BE BASED ON THE PRIMARY CLINICAL RECORDS. [employer] [facility]. provides no warranty or guarantee of the accuracy or completeness of information in this document.
--- NOTE | 2023-08-14 15:34 | MRI_ITS ---
EXAM: MR HEAD WITHOUT INTRAVENOUS CONTRAST CLINICAL INDICATION: Paresthesias TECHNIQUE: Multiplanar and multisequence MR images of the brain were obtained without intravenous contrast. COMPARISON: No relevant prior studies available. FINDINGS: BRAIN AND EXTRA-AXIAL SPACES: Normal. No intra- or extra-axial hemorrhage. No evidence of acute infarct. No intracranial mass or mass effect. There is preservation of the vigil/white matter interface. Posterior fossa structures are unremarkable. Ventricles are appropriate for age. No hydrocephalus. Basal cisterns are patent. SELLA: Normal. Normal sella turcica, pituitary gland, infundibular stalk, optic chiasm and hypothalamus. AUDITORY SYSTEM: Normal. The internal auditory canals are patent. BONES/JOINTS: Intact calvarium. SINUSES: Unremarkable as visualized. Clear. MASTOID AIR CELLS: Unremarkable as visualized. Clear. ORBITS: Unremarkable as visualized. Both globes, extraocular muscles, optic nerves and retrobulbar fat appear unremarkable. VASCULATURE: Unremarkable as visualized. Normal flow voids in the major intracranial circulation. MRI/Brain without Contrast IMPRESSION: Normal MRI brain without intravenous contrast. Electronically Signed: Mio Huff MD at 16:49 EST ,
== END | disposition home or self-care (01) ==
LOC: MRI 15:09
PROVIDERS: PCP Family Medicine; Referring Provider Family Medicine; Visit Provider Family Medicine
DX: R20.2 Paresthesia of skin (principal)
CPT/HCPCS: 70551

== ENCOUNTER → 2023-09-01 | Outpatient (CLI) | payer BC, SELFPAY ==
--- NOTE | 2023-09-01 14:26 | CT_ITS ---
STUDY: CT CHEST WITHOUT CONTRAST REASON FOR EXAM: Male, 43 years old. COSTAL CHONDRITIS. Chronic left-sided rib pain. RADIATION DOSAGE (If Supplied By Facility): CTDIvol = ( 16.79 ) mGy, DLP = ( 612.62 ) mGycm TECHNIQUE: Transaxial imaging was performed without the administration of intravenous contrast material. Multiplanar coronal and sagittal images were reformatted. Individualized dose optimization techniques were used for this CT. COMPARISON: No relevant priors. FINDINGS: CHEST Mild enlargement of the thyroid gland. Mild elevation of the right hemidiaphragm. The lungs are normal. There is no demonstrated pleural abnormality. Normal heart and pericardium. Calcified subcarinal lymph nodes. Calcified bilateral hilar lymph nodes more prominent on the right side. Normal unenhanced pulmonary arteries. Normal aorta arch and descending thoracic aorta. Normal osseous structures. Diffuse fatty infiltration of the liver. Mild hepatomegaly. Gallstones. CT/Chest without Contrast IMPRESSION: Mild enlargement of the thyroid. No acute abnormality is seen. Electronically Signed: Ghassan Carter MD at 15:12 EST ,
--- OUTSIDE RECORDS SUMMARY | 2023-09-01 18:03 | XMS RPT_ITS | CCD ---
Author Name Unknown Address [facility] [place] [address] Organization [facility] Care Team Providers Care Heavy Threader Name Role Phone NYADANIEL Unavailable Unavailable JOSE L SAINZ Unavailable Unavailable Results Test Name Value Interpretation Reference Range Facil ity Encounters Encounter Date Encounter Type Care Provider Facility Start: 04-15-2017 End: 04-15-2017 Emergency department patient visit DANIEL FAY Facility:[id number] Clinical Note 10-30-2021 Note Date & Type Note Facility 10-30-2021 Note Patient Outreach (NE TNAV) MICHAEL NUNEZ ([id number]) 1980 M Date Time Provider Department 10/30/21 NO PCP NETNAV During your visit today, we recorded the following information about you: Haseeb Stoddard 10/30/2021 11:10 AM Signed POPULATION HEALTH NAVIGATION OUTREACH Action/FYI AI consult order dated [id number] Pt identified by name and : NO Outreach Outcome/Action Unable to reach patient: Phone number not valid / voicemail full [employer] message sent Reason for Outreach Care Gap [...] Encounter Status:Closed by HASEEB MURPHY on 10/30/21 [facility] Progress note 10-30-2021 Note Date & Type Note Facility 10-30-2021 Note HNO ID: [id number] Author: Haseeb Stoddard Service: ? Author Type: ? Type: Progress Notes Filed: 10/30/2021 11:10 AM Note Text: POPULATION HEALTH NAVIGATION OUTREACH Action/FYI AI consult order dated [id number] Pt identified by name and : NO Outreach Outcome/Action Unable to reach patient: Phone number not valid / voicemail full [employer] message sent Reason for Outreach Care Gap [...] Haseeb Stoddard October 30, 2021 11:10 AM [facility] Progress note 10-14-2021 Note Date & Type Note Facility 10-14-2021 Note HNO ID: [id number] Author: Jose L Sainz DO Service: ? [...] TO PAIN MGT Jose L Sainz DO [facility] Progress note 10-07-2021 Note Date & Type Note Facility 10-07-2021 Note HNO ID: [id number] Author: RT Nicola(R) Service: ? Author Type: Chassis Engineer Type: Progress Notes Filed: 10/07/2021 2:54 PM [...] RT Fermin(R) October 07, 2021 2:54 PM [facility] Progress note 09-10-2021 Note Date & Type Note Facility 09-10-2021 Note HNO ID: [id number] Author: Akanksha Smith PT Service: ? Author Type: Physical Therapist Type: Progress Notes Filed: 10/28/2021 4:48 PM Note Text: 10/28/[address] [facility] REHABILITATION AND SPORTS THERAPY PHYSICAL THERAPY DISCONTINUANCE [...] of Care: created on 09/10/21 through 11/05/21 [place] in home exercise program. Patient will decrease [...] Planned: 12 Planned Treatment Interventions: Therapeutic exercise (71631);Neuromuscular re-education (38370);Manual therapy (12193);Therapeutic activities (30750);Patient/Family/Caregiver Education;Body Mechanics Training PLAN FOR NEXT VISIT: [...] in L rib right at incision. 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 [facility] Progress note 09-03-2021 Note Date & Type Note Facility 09-03-2021 Note HNO ID: [id number] Author: Jose L Sainz DO Service: ? [...] AP RIB/OBLS/CXR LEFT Jose L Sainz DO [facility] Progress note 05-01-2021 Note Date & Type Note Facility 05-01-2021 Note HNO ID: [id number] Author: Geeta Estrada PA-C Service: ? Author Type: Physician Porcelain Enameler Type: Progress Notes Filed: 05/01/2021 2:50 PM Note Text: This note was created using [employer]. Subjective Michael Nunez is a 40 year [...] FIBULA 2V AP/LAT LT Geeta Estrada PA-C [facility] Progress note 05-01-2021 Note Date & Type Note Facility 05-01-2021 Note HNO ID: [id number] Author: Griselda Harris RT(R) Service: Radiology Author [...] Harris RT(R) May 01, 2021 2:35 PM [facility] Summary Purpose Family History No Family History Records FoundNo Family History Records Found Advance Directives No Advanced Directives Records FoundNo Advanced Directives Records Found Additional Source Comments (unrecognized sect ion and content) No Status Records FoundNo Status Records Found INFORMATION SOURCE (unrecogn ized section and content) DATE CREATED AUTHOR AUTHOR'S ORGANIZ ATION 10/30/2021 [facility] FOR RECORDS PERTAINING TO PATIENTS WHO ARE [...] BE BASED ON THE PRIMARY CLINICAL RECORDS. [facility]. provides no warranty or guarantee of the accuracy or completeness of information in this document.
== END | disposition home or self-care (01) ==
LOC: CT 14:17
PROVIDERS: PCP Family Medicine; Referring Provider Clinical Nurse Specialist Adult Health; Visit Provider Clinical Nurse Specialist Adult Health
DX: M94.0 Chondrocostal junction syndrome [Tietze] (principal)
CPT/HCPCS: 71250